=== PATIENT | female | born 1955 | race Asian ===

== ENCOUNTER 2017-02-23 00:49 | Emergency (ER) | payer SELFPAY ==
[~2017-02-23] VITALS: Ht 162.6 cm; Wt 49.0 kg
[2017-02-23 01:48] LABS: HEMATOCRIT. 31.4 % (36.0-48.0); HEMOGLOBIN. 9.9 g/dL (12.0-16.0); MEAN CORPUSCULAR HEMOGLOBIN 20.4 pg (28.0-32.0); MEAN CORPUSCULAR VOLUME 64.3 fL (81.0-99.0); MEAN PLATELET VOLUME 7.2 fl (7.4-10.4); PLATELET 679 x1000/uL (130-400); RED BLOOD CELL COUNT 4.89 mill/uL (4.2-5.4); RED CELL DISTRIBUTION WIDTH 14.5 % (11.6-14.6)
[2017-02-23] MEDS ORDERED: HYDROCODONE/ACETAMINOPHEN 5/325MG TABLET PO ONE (02:00)
[2017-02-23 02:05] LABS: CARBON DIOXIDE 26 mEq/L (21-32); CHLORIDE 107 mEq/L (98-107)
[2017-02-23 02:19] VITALS: BP 108/70
[2017-02-23 06:11] LABS: PLATELET ESTIMATE INCREASED
== END 2017-02-24 06:23 | disposition home or self-care (01) ==
LOC: ER 00:49
DX: T81.30XA Disruption of wound, unspecified, initial encounter (principal); F17.200 Nicotine dependence, unspecified, uncomplicated; Z98.890 Other specified postprocedural states
CPT/HCPCS: 36415; 80048; 85025; 99284; Z7610